=== PATIENT | female | born 1975 | race American Indian/Alaskan Native ===

== ENCOUNTER 2017-02-02 15:46 | Emergency (ER) | payer OTHER ==
--- NOTE | 2017-02-02 19:06 | Emergency Department Report ---
ED Rash HPI - HPI Chief Complaint: Skin Rash Stated Complaint: RASH ALL OVER BODY Time Seen by Provider: 02/02/17 18:33 Location: Neck, Back, Abdomen, Upper Extremities Rash Symptoms: Yes Itching, No Facial Swelling, No Tongue/Oral Swelling, No Breathing Difficulties, No Choking Sensation, No Wheezing/Dyspnea, No Peeling, No Blistering, No Fever, No Lightheaded, No Malaise, No Myalgias Severity: moderate ED Review of Systems ROS: Stated complaint: RASH ALL OVER BODY Other details as noted in HPI Constitutional: denies: chills, fever Eyes: denies: eye pain, eye discharge, vision change ENT: denies: ear pain, throat pain Respiratory: denies: cough, shortness of breath, wheezing Cardiovascular: denies: chest pain, palpitations Endocrine: no symptoms reported Gastrointestinal: denies: abdominal pain, nausea, diarrhea Genitourinary: as per HPI Musculoskeletal: denies: back pain, joint swelling, arthralgia Skin: rash, pruritus Neurological: denies: headache, weakness, paresthesias Psychiatric: denies: anxiety, depression Hematological/Lymphatic: denies: easy bleeding, easy bruising ED Past Medical Hx - Past Medical History Previous Medical History?: No Additional medical history: Vaginal delivery x 1 - Surgical History Past Surgical History?: Yes Hx Cholecystectomy: Yes Additional Surgical History: x 1. abd hernia repair - Social History Smoking Status: Current Every Day Smoker Substance Use Type: None - Medications Home Medications: Home Medications Medication Instructions Recorded Confirmed Last Taken Type Doxycycline [Vibramycin CAP] 100 mg PO BID #14 capsule 09/12/13 Unknown Rx ALBUTEROL Inhaler [ProAir HFA 2 puff IH QID PRN #1 inhalation 05/05/15 Unknown Rx Inhaler] Ibuprofen [Motrin] 400 mg PO Q8H PRN #30 tablet 05/05/15 Unknown Rx Prednisone [predniSONE 10 mg 10 mg PO .TAPER #1 tab.ds.pk 05/05/15 Unknown Rx (6-Day Pack, 21 Tabs)] Promethazine /Codeine 5 ml PO Q6H PRN #120 udc 05/05/15 Unknown Rx [Phenergan/Codeine 6.25-10 mg/5 ml] Triamcinolone 0.1% [Kenalog 0.1% 1 applic TP BID #1 tube 02/02/17 Unknown Rx OINT] hydrOXYzine HCL [Atarax] 25 mg PO Q6HR PRN #30 tablet 02/02/17 Unknown Rx predniSONE [Deltasone] 10 mg PO .TAPER #21 tab 02/02/17 Unknown Rx Rash Exam - Exam General: Vital signs noted. No distress. Alert and acting appropriately. HEENT: No Periorbital Edema, No Conjuctival Injection, No Chemosis, No Perioral Edema, No Tongue Edema, No Uvular Edema, No Compromised Airway, No Drooling Lungs: Yes Good Air Exchange (Normal Breath Sounds), No Wheezes, No Ronchi, No Stridor, No Cough, No Labored Respirations, No Retractions, No Use of Accessory Muscles, No Other Abnormal Lung Sounds Heart: Yes Regular, No Murmur Skin: Yes Urticarial Rash, Yes Other (dry ), No Maculopapular Rash, No Morbilliform rash, No Bulla(e), No Excoriations, No Weeping, No Tenderness, No Erythema, No Edema, No Encrustations Other: Positive: Abdomen Normal, Neurologic Normal, Musculoskeletal Normal ED Course Vital Signs 02/02/17 15:52 Temperature 98.4 F Pulse Rate 83 Respiratory 18 Rate Blood Pressure 142/87 O2 Sat by Pulse 98 Oximetry ED Medical Decision Making - Medical Decision Making pt is a 40 y/o aaf with hx of cholecystectomy and hernia repair, who presents for rash bilat UE, trunk and neck 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 exam: pt rec'd with nad appears well nontoxic no resp distress lungs are clear no wheezing cv: s1 and S2 no MRG, dry flaking skin raised no weeping no erythema no open lesions likely contact dermatitis will treat for same. pt verbalized agreement and understanding of same. pt for dc to self, plan tx with steroid, triamcinolone oint, atarax, pt will follow up with primary care doctor in 2 days or return to emergency if symptoms worsen pt verbalized agreement and understanding with discharge plan. Critical care attestation.: If time is entered above; I have spent that time in minutes in the direct care of this critically ill patient, excluding procedure time. ED Disposition Clinical Impression: Contact dermatitis and eczema Disposition: DC- TO HOME OR SELFCARE Is pt being admited?: No Does the pt Need Aspirin: No Condition: Good Instructions: Contact Dermatitis (ED) Prescriptions: hydrOXYzine HCL [Atarax] 25 mg PO Q6HR PRN #30 tablet PRN Reason: Itching predniSONE [Deltasone] 10 mg PO .TAPER #21 tab Triamcinolone 0.1% [Kenalog 0.1% OINT] 1 applic TP BID #1 tube Referrals: PRIMARY CARE, [Primary Care Provider] - 3-5 Days Forms: Work/School Release Form(ED) Time of Disposition: 19:18
[2017-02-02 19:34] VITALS: BP 129/73
== END 2017-02-02 19:25 | disposition home or self-care (01) ==
LOC: ED 15:46
DX: L25.9 Unspecified contact dermatitis, unspecified cause (principal); F17.210 Nicotine dependence, cigarettes, uncomplicated
CPT/HCPCS: 99282

== ENCOUNTER 2021-11-11 13:53 | Emergency (ER) | payer SELFPAY ==
[2021-11-11] MEDS ORDERED: SODIUM CHLORIDE 0.9% 1000 ML 1,000 ML IV ONE ×2 (14:22→15:38)
--- NOTE | 2021-11-11 14:55 | XRay Report ---
CHEST 2 VIEWS INDICATION / CLINICAL INFORMATION: Syncope STUDY TIME: 1446 COMPARISON: None available. FINDINGS: SUPPORT DEVICES: None. HEART / MEDIASTINUM: No significant abnormality. LUNGS / PLEURA: No significant acute pulmonary or pleural abnormality. No pneumothorax. ADDITIONAL FINDINGS: No significant additional findings. Signer Name: Nolberto Wilkins MD Signed: 11/11/2021 2:51 PM Workstation Name: [id number]
--- NOTE | 2021-11-11 15:41 | Emergency Department Report ---
ED General Adult HPI - General Chief complaint: Syncope Stated complaint: PASSED OUT Time Seen by Provider: 11/11/21 15:38 Source: EMS Mode of arrival: Stretcher Limitations: No Limitations - History of Present Illness Initial comments: The patient presents to the emergency department via EMS for syncopal episode. The patient states she was at work and she began to have blurry vision and felt weak. Patient denies having shortness of breath or chest pain prior to or after this episode. Patient denies have any history of passing out. Patient states for the last week and a half she has had chills and swollen glands but denies fever. -: Sudden Severity scale (0 -10): 0 Consistency: now resolved Improves with: none Worsens with: none Associated Symptoms: denies other symptoms Treatments Prior to Arrival: none - Related Data Previous Rx's Medication Instructions Recorded Last Taken Type DOXYCYCLINE Hyclate [Vibramycin 100 mg PO BID #14 capsule 09/12/13 Unknown Rx CAP] Albuterol Mdi (or & Nicu Only) 2 puff IH QID PRN #1 inhalation 05/05/15 Unknown Rx [ProAir HFA Inhaler] Ibuprofen [Motrin] 400 mg PO Q8H PRN #30 tablet 05/05/15 Unknown Rx Prednisone [predniSONE 10 mg 10 mg PO .TAPER #1 tab.ds.pk 05/05/15 Unknown Rx (6-Day Pack, 21 Tabs)] Promethazine /Codeine 5 ml PO Q6H PRN #120 udc 05/05/15 Unknown Rx [Phenergan/Codeine 6.25-10 mg/5 ml] Triamcinolone 0.1% [Kenalog 0.1% 1 applic TP BID #1 tube 02/02/17 Unknown Rx OINT] hydrOXYzine HCL [Atarax] 25 mg PO Q6HR PRN #30 tablet 02/02/17 Unknown Rx predniSONE 10 mg PO .TAPER #21 tab 02/02/17 Unknown Rx Ibuprofen [Motrin] 600 mg PO Q8H PRN #20 tablet 04/01/18 Unknown Rx Allergies Allergy/AdvReac Type Severity Reaction Status Date / Time No Known Allergies Allergy Verified 11/11/21 14:12 ED Review of Systems ROS: Stated complaint: PASSED OUT Other details as noted in HPI Comment: All other systems reviewed and negative Constitutional: denies: chills, fever Eyes: denies: eye pain, eye discharge, vision change ENT: denies: ear pain, throat pain Respiratory: denies: cough, shortness of breath, wheezing Cardiovascular: denies: chest pain, palpitations Endocrine: no symptoms reported Gastrointestinal: denies: abdominal pain, nausea, diarrhea Genitourinary: denies: urgency, dysuria, discharge Musculoskeletal: denies: back pain, joint swelling, arthralgia Skin: denies: rash, lesions Neurological: denies: headache, weakness, paresthesias Psychiatric: denies: anxiety, depression Hematological/Lymphatic: denies: easy bleeding, easy bruising ED Past Medical Hx - Past Medical History Previous Medical History?: No Additional medical history: Vaginal delivery x 1 - Surgical History Hx Cholecystectomy: Yes Additional Surgical History: x 1. abd hernia repair - Social History Smoking Status: Current Every Day Smoker Substance Use Type: None - Medications Home Medications: Home Medications Medication Instructions Recorded Confirmed Last Taken Type DOXYCYCLINE Hyclate [Vibramycin 100 mg PO BID #14 capsule 09/12/13 Unknown Rx CAP] Albuterol Mdi (or & Nicu Only) 2 puff IH QID PRN #1 inhalation 05/05/15 Unknown Rx [ProAir HFA Inhaler] Ibuprofen [Motrin] 400 mg PO Q8H PRN #30 tablet 05/05/15 Unknown Rx Prednisone [predniSONE 10 mg 10 mg PO .TAPER #1 tab.ds.pk 05/05/15 Unknown Rx (6-Day Pack, 21 Tabs)] Promethazine /Codeine 5 ml PO Q6H PRN #120 udc 05/05/15 Unknown Rx [Phenergan/Codeine 6.25-10 mg/5 ml] Triamcinolone 0.1% [Kenalog 0.1% 1 applic TP BID #1 tube 02/02/17 Unknown Rx OINT] hydrOXYzine HCL [Atarax] 25 mg PO Q6HR PRN #30 tablet 02/02/17 Unknown Rx predniSONE 10 mg PO .TAPER #21 tab 02/02/17 Unknown Rx Ibuprofen [Motrin] 600 mg PO Q8H PRN #20 tablet 04/01/18 Unknown Rx ED Physical Exam - General Limitations: No Limitations General appearance: alert, in no apparent distress - Head Head exam: Present: atraumatic, normocephalic - Eye Eye exam: Present: normal appearance - ENT ENT exam: Present: mucous membranes dry - Neck Neck exam: Present: normal inspection - Respiratory Respiratory exam: Present: normal lung sounds bilaterally. Absent: respiratory distress - Cardiovascular Cardiovascular Exam: Present: regular rate, normal rhythm. Absent: systolic murmur, diastolic murmur, rubs, gallop - GI/Abdominal GI/Abdominal exam: Present: soft, normal bowel sounds. Absent: distended, tenderness - Extremities Exam Extremities exam: Present: normal inspection - Back Exam Back exam: Present: normal inspection - Neurological Exam Neurological exam: Present: alert, oriented X3, CN II-XII intact. Absent: motor sensory deficit - Psychiatric Psychiatric exam: Present: normal affect, normal mood - Skin Skin exam: Present: warm, dry, intact, normal color. Absent: rash ED Course Vital Signs 11/11/21 14:09 Temperature 97.5 F L Pulse Rate 80 Respiratory 16 Rate Blood Pressure 150/97 [Left] O2 Sat by Pulse 100 Oximetry ED Medical Decision Making - Lab Data Result diagrams: 11/11/21 16:02 11/11/21 16:02 Lab Results 11/11/21 11/11/21 Range/Units 16:02 16:02 WBC 5.8 (4.5-11.0) K/mm3 RBC 4.50 (3.65-5.03) M/mm3 Hgb 13.8 (10.1-14.3) gm/dl Hct 39.3 (30.3-42.9) % MCV 87 (79-97) fl MCH 31 (28-32) pg MCHC 35 H (30-34) % RDW 13.7 (13.2-15.2) % Plt Count 270 (140-440) K/mm3 Lymph % (Auto) 24.7 (13.4-35.0) % [place] % (Auto) 9.3 H (0.0-7.3) % Eos % (Auto) 0.0 (0.0-4.3) % Baso % (Auto) 0.7 (0.0-1.8) % Lymph # (Auto) 1.4 (1.2-5.4) K/mm3 [place] # (Auto) 0.5 (0.0-0.8) K/mm3 Eos # (Auto) 0.0 (0.0-0.4) K/mm3 Baso # (Auto) 0.0 (0.0-0.1) K/mm3 Seg Neutrophils % 65.3 (40.0-70.0) % Seg Neutrophils # 3.8 (1.8-7.7) K/mm3 Sodium 140 (137-145) mmol/L Potassium 3.8 (3.6-5.0) mmol/L Chloride 103.5 (98-107) mmol/L Carbon Dioxide 24 (22-30) mmol/L Anion Gap 16 mmol/L BUN 9 (7-17) mg/dL Creatinine 0.9 (0.6-1.2) mg/dL Estimated GFR > 60 ml/min BUN/Creatinine Ratio 10 % Glucose 85 (65-100) mg/dL Calcium 8.7 (8.4-10.2) mg/dL Magnesium 2.10 (1.7-2.3) mg/dL Total Bilirubin 0.20 (0.1-1.2) mg/dL AST 21 (5-40) units/L ALT 15 (7-56) units/L Alkaline Phosphatase 107 (35-129) units/L Total Creatine Kinase 96 (30-135) units/L CK-MB (CK-2) < 1.0 (0.0-4.0) ng/mL CK-MB (CK-2) Rel Index 1.0 (0-4) Troponin T < 0.010 (0.00-0.029) ng/mL Total Protein 7.0 (6.3-8.2) g/dL Albumin 4.2 (3.9-5) g/dL Albumin/Globulin Ratio 1.5 % - EKG Data -: EKG Interpreted by [place] EKG shows normal: sinus rhythm Rate: normal - Radiology Data Radiology results: report reviewed - Medical Decision Making Discussed results with patient Critical care attestation.: If time is entered above; I have spent that time in minutes in the direct care of this critically ill patient, excluding procedure time. ED Disposition Clinical Impression: Vasovagal episode Disposition: 01 HOME / SELF CARE / HOMELESS Is pt being admited?: No Does the pt Need Aspirin: No Condition: Stable Instructions: Syncope (ED), Syncope Additional Instructions: Return if worse Time of Disposition: 17:25
--- NOTE | 2021-11-11 16:12 | Cat Scan Report ---
CT head/brain wo con INDICATION: syncope. TECHNIQUE: Routine CT head. All CT scans at this location are performed using CT dose reduction for A KEZIA by means of automated exposure control. COMPARISON: None. FINDINGS: Intracranial: Post-white matter differentiation is maintained. No intracranial hemorrhage. No extra a xial collection. No hydrocephalus. No herniation. Sinuses: Paranasal sinuses and mastoid air cells are essentially clear. Orbits: Globes are intact. Calvarium: No acute fracture. IMPRESSION: 1. No acute intracranial abnormality. Signer Name: Abhijeet Maza MD Signed: 11/11/2021 4:08 PM Workstation Name: [id number]
[2021-11-11 16:26] LABS: Basophils % (Auto) 0.7 % (0.0-1.8); Hematocrit 39.3 % (30.3-42.9); Hemoglobin 13.8 gm/dl (10.1-14.3); Lymphocytes # (Auto) 1.4 K/mm3 (1.2-5.4); Lymphocytes % (Auto) 24.7 % (13.4-35.0); Mean Corpuscular HGB Conc 35 % (30-34); Mean Corpuscular Volume 87 fl (79-97); Monocytes # (Auto) 0.5 K/mm3 (0.0-0.8); Monocytes % (Auto) 9.3 % (0.0-7.3); Platelet Count 270 K/mm3 (140-440); Red Cell Distribution Width 13.7 % (13.2-15.2)
[2021-11-11 16:49] LABS: Alanine Aminotransferase 15 units/L (7-56); Albumin 4.2 g/dL (3.9-5); BUN/Creatinine Ratio 10; Blood Urea Nitrogen 9 mg/dL (7-17); Calcium 8.7 mg/dL (8.4-10.2); Hemolysis Index 26
[2021-11-11 17:07] LABS: Creatine Kinase MB < 1.0 ng/mL (0.0-4.0)
[2021-11-11 18:21] VITALS: BP 142/80
--- NOTE | 2021-11-12 11:18 | Electrocardiograph Report ---
[facility] Test Date: 2021-11-11 Test Time: 17:39:19 Pat Name: GUANAKITO JUSTIN Department: Room: Gender: F [employer]: NURSE : 1975 Requested By: ANDER INFANTE Order Number: [id number] Reading MD: Sarthak Daniels Measurements Intervals [place] Rate: 72 P: 55 TN: 160 QRS: 41 QRSD: 75 T: 54 QT: 395 QTc: 432 Interpretive Statements Sinus rhythm Probable left atrial enlargement Low voltage, precordial leads No previous ECG available for comparison Electronically Signed On 11-12-2021 11:17:51 EDT by Sarthak Daniels
== END 2021-11-11 18:22 | disposition home or self-care (01) ==
LOC: ED 13:53
DX: R55 Syncope and collapse (principal); Z90.49 Acquired absence of other specified parts of digestive tract; Z79.899 Other long term (current) drug therapy
CPT/HCPCS: 36415; 70450; 71046; 80053; 82550; 82553; 83735; 84484; 85025; 93005; 96360; 96361; 99285; J7030